=== PATIENT | male | born 1960 | race American Indian/Alaskan Native ===

== ENCOUNTER 2018-12-08 16:01 | Emergency (ER) | payer SELFPAY ==
--- NOTE | 2018-12-08 16:33 | ED PDOC ---
Arrival/HPI - General Chief Complaint: Male Genitourinary Time Seen by Provider: 12/08/18 16:04 Historian: Patient, Partner - History of Present Illness Narrative History of Present Illness (Text): 12/08/18 16:34 57-year-old male presents today with a 5-month history of urinary frequency. Patient states for the past 5 months he is been going to the bathroom frequently and at times he has to run to the bathroom and occasionally does not make it in time and starts to dribble urine out prior to unzipping his pants. Patient denies abdominal pain. No nausea vomiting diarrhea. Patient states he has occasional constipation and hard stools. He denies hematuria or back pain. Patient denies fevers or chills. Patient's states that she was recently diagnosed with a urinary tract infection and she is convinced that he has a urinary tract infection. Patient denies penile discharge or testicular pain. No other complaints. Past Medical History - Provider Review Nursing Documentation Reviewed: Yes - Travel History Have you recently traveled outside [place] w/in the past 3 mons?: No - Infectious Disease Hx of Infectious Diseases: None - Psychiatric Hx Substance Use: No - Anesthesia Hx Anesthesia: No Family/Social History - Physician Review Nursing Documentation Reviewed: Yes Family/Social History: Unknown Family HX Smoking Status: Current Some Days Smoker Hx Alcohol Use: Yes Frequency of alcohol use: Socially Hx Substance Use: No Allergies/Home Meds Allergies/Adverse Reactions: Allergies seasonal Allergy (Uncoded 12/08/18 16:13) CONGESTION Home Medications: Home Meds Medication Instructions Recorded Confirmed No Known Home Med 12/08/18 12/08/18 Review of Systems - Review of Systems Constitutional: absent: Fatigue, Fevers Respiratory: absent: SOB, Cough Cardiovascular: absent: Chest Pain, Palpitations Gastrointestinal: Constipation (at times). absent: Abdominal Pain, Diarrhea, Nausea, Vomiting Genitourinary Male: Frequency. absent: Dysuria, Hematuria, Urinary Output Changes Musculoskeletal: absent: Arthralgias, Back Pain, Neck Pain Skin: absent: Rash, Pruritis Neurological: absent: Headache, Dizziness Psychiatric: absent: Anxiety, Depression Physical Exam Vital Signs Reviewed: Yes Vital Signs Temp Pulse Resp BP Pulse Ox 12/08/18 16:07 98.5 F 67 18 157/84 H 99 Temperature: Afebrile Blood Pressure: Hypertensive Pulse: Regular Respiratory Rate: Normal Appearance: Positive for: Well-Appearing, Non-Toxic, Comfortable Pain Distress: None Mental Status: Positive for: Alert and Oriented X 3 - Systems Exam Head: Present: Atraumatic Mouth: Present: Moist Mucous Membranes Neck: Present: Normal Range of Motion Respiratory/Chest: Present: Clear to Auscultation, Good Air Exchange. No: Respiratory Distress, Accessory Muscle Use Cardiovascular: Present: Regular Rate and Rhythm, Normal S1, S2. No: Murmurs Abdomen: Present: Hernias (+ reducible right inguinal hernia without tenderness, erythema. ). No: Tenderness, Distention, Peritoneal Signs, Rebound, Guarding Back: Present: Normal Inspection. No: CVA Tenderness, Midline Tenderness, Paraspinal Tenderness Upper Extremity: Present: Normal ROM Lower Extremity: Present: Normal ROM Neurological: Present: GCS=15 Skin: Present: Warm, Dry, Normal Color. No: Rashes Psychiatric: Present: Alert, Oriented x 3 Medical Decision Making ED Course and Treatment: 12/08/18 16:50 57yr old male with 5 month history of urinary frequency. abd is soft non tender, non distended with reducible right inguinal hernia. after urination; post void residual is 56cc measured by bladder scanner. UA: wnl urine culture pending gc/chlamydia pending. pts is concerned that the patient is cheating on her and she thinks he has an std because she keeps getting. pt agrees to std treatment. 12/08/18 16:58 pt is non toxic well appearing; no distress. stable vitals. all results d iscussed in depth with patient; pt advised to f/u with Pmd and urologist. pt advised immediate return if symptoms worsen,persist or if new symptoms develop. I discussed hernias in depth with the patient and his partner. I have advised follow-up with a surgeon for evaluation of his inguinal hernia. I have discussed signs and symptoms of strangulated/incarcerated hernias and the need for immediate return if the patient starts to develop any pain or becomes no longer able to reduce his hernia. Patient verbalizes understanding of discharge instructions and need for immediate followup. All aspects of this case were discussed the attending of record. Impression: Urinary frequency, hernia follow up with the primary care physician within the next 2 days. follow up with the urologist within the next 2 days. follow up with the surgeon within the next 2 days regarding hernia return immediately if symptoms worsen,persist or if new symptoms develop. Disposition/Present on Arrival - Present on Arrival Any Indicators Present on Arrival: No History of DVT/PE: No History of Uncontrolled Diabetes: No Urinary Catheter: No History of Decub. Ulcer: No History Surgical Site Infection Following: None - Disposition Have Diagnosis and Disposition been Completed?: Yes Diagnosis: Urinary frequency, Hernia Disposition: HOME/ ROUTINE Disposition Time: 17:30 Patient Plan: Discharge Condition: GOOD Discharge Instructions (ExitCare): Groin Hernia (DC), Screening for Sexually Transmitted Infections Additional Instructions: follow up with the primary care physician within the next 2 days. follow up with the urologist within the next 2 days. follow up with the surgeon within the next 2 days regarding hernia return immediately if symptoms worsen,persist or if new symptoms develop. Referrals: FAMILY PROVIDER,NO [Primary Care Provider] - Follow up with primary Gideon Rdz MD [Staff Provider] - Follow up with primary Avelina Rdz MD [Staff Provider] - Follow up with primary Shane Olson MD [Staff Provider] - Follow up with primary Scott Person MD [Staff Provider] - Follow up with primary Yolanda Grimes MD [Medical Doctor] - Follow up with primary [facility] [Outside] - Follow up with primary [facility] at [facility] [place] [Outside] - Follow up with primary Forms: [employer] (Emirati)
[2018-12-08 16:53] LABS: URINE BILIRUBIN NEGATIVE (NEGATIVE); URINE BLOOD NEGATIVE (NEGATIVE); URINE GLUCOSE (UA) NEGATIVE (NEGATIVE); URINE LEUKOCYTE ESTERASE NEGATIVE Leu/uL (NEGATIVE); URINE PROTEIN NEGATIVE mg/dL (<30 mg/dL); URINE UROBILINOGEN 0.2 E.U./dL (<1 E.U./dL)
[2018-12-08 16:58] LABS: URINE COLOR LIGHT YELLOW (YELLOW)
[2018-12-08 16:59] LABS: URINE APPEARANCE CLEAR (CLEAR)
[2018-12-08] MEDS ORDERED: cefTRIAXone (Rocephin) 250 mg Inj IM STA (17:35)
[2018-12-08 18:29] VITALS: BP 148/79; PULSE 50; RESP 16; TEMP 98.7; O2SAT 97
== END 2018-12-08 18:27 | disposition home or self-care (01) ==
LOC: ED 16:01
DX: R35.0 Frequency of micturition (principal); K40.90 Unilateral inguinal hernia, without obstruction or gangrene, not specified as recurrent
CPT/HCPCS: 81003; 82948; 87086; 87491; 87591; 96372; 99283; J0696

== ENCOUNTER 2019-02-10 14:19 | Emergency (ER) | payer SELFPAY ==
[2019-02-10 14:29] VITALS: TEMP 98.5
[2019-02-10] MEDS ORDERED: DiphenhydrAMINE 50 mg/ml Inj IVP STA (14:43)
[2019-02-10] MEDS ORDERED: Sodium Chloride 0.9% 1,000 ML IV STA (14:43)
[2019-02-10 15:04] LABS: BASO # 0.02 K/mm3 (0.0-2.0); BASO % 0.2 % (0.0-3.0); EOS % 0.5 % (1.5-5.0); HEMOGLOBIN 14.5 g/dL (14.0-18.0); LYMPH # 1.9 (1.2-3.4); LYMPH % 22.1 % (22.0-35.0); MEAN CELL VOLUME 91.7 fl (80.0-105.0); MEAN CORPUSCULAR HEMOGLOBIN 30.8 pg (25.0-35.0); MEAN CORPUSCULAR HGB CONC 33.6 g/dl (31.0-37.0); MEAN PLATELET VOLUME 9.5 fl (7.0-11.0); MONO # 0.7 (0.1-0.6); MONO % 7.6 % (1.0-6.0); RBC 4.71 10^6/uL (3.5-6.1); WHITE BLOOD COUNT 8.6 10^3/uL (4.5-11.0)
[2019-02-10 15:10] LABS: INR 1.23; PARTIAL THROMBOPLASTIN TIME 36.1 Seconds (26.9-38.3); PROTHROMBIN TIME 13.6 SECONDS (9.4-12.5)
[2019-02-10 15:14] LABS: ALT/SGPT 21 U/L (7-56); AST/SGOT 23 U/L (17-59); BLOOD UREA NITROGEN 11 mg/dL (7-21); CALCIUM 9.8 mg/dL (8.4-10.5); GFR NON-AFRICAN AMERICAN > 60
--- NOTE | 2019-02-10 15:14 | CT ---
Date of service: 02/10/2019 PROCEDURE: CT HEAD WITHOUT CONTRAST. HISTORY: headache COMPARISON: None available. TECHNIQUE: Axial computed tomography images were obtained through the head/brain without intravenous contrast. Radiation dose: Total exam DLP = 861.83 mGy-cm. This CT exam was performed using one or more of the following dose reduction techniques: Automated exposure control, adjustment of the mA and/or kV according to patient size, and/or use of iterative reconstruction technique. FINDINGS: HEMORRHAGE: No intracranial hemorrhage. BRAIN: No mass effect or edema. No atrophy or chronic microvascular ischemic changes. VENTRICLES: Unremarkable. No hydrocephalus. CALVARIUM: Unremarkable. PARANASAL SINUSES: Unremarkable as visualized. No significant inflammatory changes. MASTOID AIR CELLS: Unremarkable as visualized. No inflammatory changes. OTHER FINDINGS: None. IMPRESSION: No acute intracranial pathology.
--- NOTE | 2019-02-10 15:16 | ED PDOC ---
Arrival/HPI - General Chief Complaint: Headache Time Seen by Provider: 02/10/19 14:30 Historian: Patient - History of Present Illness Narrative History of Present Illness (Text): 58 y/o male with no significant PMH presents to the ED c/o headache x 5 days. Described as dull and located to occiput. Has been taking tylenol and zyrtec without relief. Associated sinus congestion. Denies fever, chills, dizziness, vision changes, neck stiffness, extremity numbness/weakness/paresthesia, chest pain, SOB, nausea, vomiting, abdominal pain, ear pain, eye pain, sore throat, photophobia, or any other associated symptoms. Past Medical History - Provider Review Nursing Documentation Reviewed: Yes - Infectious Disease Hx of Infectious Diseases: None - Psychiatric Hx Substance Use: No - Anesthesia Hx Anesthesia: No Family/Social History - Physician Review Nursing Documentation Reviewed: Yes Family/Social History: No Known Family HX Smoking Status: Heavy Smoker > 10 Cigarettes Daily Hx Alcohol Use: Yes Frequency of alcohol use: Few days per week Hx Substance Use: No Allergies/Home Meds Allergies/Adverse Reactions: Allergies seasonal Allergy (Uncoded 12/08/18 16:13) CONGESTION Review of Systems - Review of Systems Constitutional: Normal. absent: Fevers Eyes: Normal. absent: Vision Changes ENT: Sinus Congestion. absent: Hearing Changes, Sore Throat Respiratory: Normal. absent: SOB, Cough Cardiovascular: Normal. absent: Chest Pain Gastrointestinal: Normal. absent: Abdominal Pain, Nausea, Vomiting Genitourinary Male: Normal. absent: Dysuria, Frequency Musculoskeletal: Normal. absent: Back Pain, Neck Pain Skin: Normal. absent: Rash Neurological: Headache Physical Exam Vital Signs Reviewed: Yes Vital Signs Temp Pulse Resp BP Pulse Ox 02/10/19 14:27 98.5 F 83 18 129/83 100 Temperature: Afebrile Blood Pressure: Normal Pulse: Regular Respiratory Rate: Normal Appearance: Positive for: Well-Appearing, Non-Toxic, Comfortable Pain Distress: None Mental Status: Positive for: Alert and Oriented X 3 - Systems Exam Head: Present: Atraumatic, Normocephalic Pupils: Present: PERRL Extroacular Muscles: Present: EOMI Conjunctiva: Present: Normal Ears: Present: Normal, NORMAL TM, Normal Canal Mouth: Present: Moist Mucous Membranes Pharnyx: Present: Normal. No: ERYTHEMA, EXUDATE, TONSILS ENLARGED Neck: Present: Normal Range of Motion, Paraspinal Tenderness (mild bilaterally). No: Meningeal Signs, MIDLINE TENDERNESS Respiratory/Chest: Present: Clear to Auscultation, Good Air Exchange. No: Respiratory Distress, Accessory Muscle Use Cardiovascular: Present: Regular Rate and Rhythm, Normal S1, S2, Peripheal Pulses Present Abdomen: No: Tenderness Back: Present: Normal Inspection Upper Extremity: Present: Normal Inspection, Normal ROM, NORMAL PULSES, Neurovascularly Intact, Capillary Refill < 2s. No: Cyanosis, Edema, Temperature Abnormalties Lower Extremity: Present: Normal Inspection, NORMAL PULSES, Normal ROM, Neurovascularly Intact, Capillary Refill < 2 s. No: Edema, Temperature Abnormalties Neurological: Present: GCS=15, CN II-XII Intact, Speech Normal, Motor Func Grossly Intact, Normal Sensory Function, Normal Cerebellar Funct, Gait Normal Skin: Present: Warm, Dry, Normal Color. No: Rashes Psychiatric: Present: Alert, Oriented x 3, Normal Insight, Normal Concentration, Normal Affect, Normal Mood Medical Decision Making ED Course and Treatment: Initial Plan: * Labs * UA * Head CT * Tylenol, Toradol, Reglan, Benadryl, IVF Bloodwork reviewed, unremarkable UA reviewed, unremarkable Head CT unremarkable Patient reports resolution of headache with pain medication Advised PMD and neurology followup. Diagnostic testing results and plan of care discussed with patient. Strict instructions given regarding prescription use, importance of followup, and sig ns/symptoms to return to ER including worsening headache, visual changes, dizziness, fever, or any other new/worsening symptoms. Pt verbalized understanding of discussion. Patient is A&Ox3, ambulating with steady gait, with vital signs stable for discharge. - Lab Interpretations Lab Results: PT 13.6 SECONDS (9.4-12.5) H 02/10/19 14:55 INR 1.23 02/10/19 14:55 APTT 36.1 Seconds (26.9-38.3) 02/10/19 14:55 Total Bilirubin 0.4 mg/dL (0.2-1.3) 02/10/19 14:55 AST 23 U/L (17-59) 02/10/19 14:55 ALT 21 U/L (7-56) 02/10/19 14:55 Alkaline Phosphatase 66 U/L (38-126) 02/10/19 14:55 Total Protein 8.1 g/dL (5.8-8.3) 02/10/19 14:55 Albumin 4.0 g/dL (3.0-4.8) 02/10/19 14:55 Globulin 4.0 gm/dL 02/10/19 14:55 Albumin/Globulin Ratio 1.0 (1.1-1.8) L 02/10/19 14:55 - RAD Interpretation Narrative RAD Interpretations (Text): 02/10/19 15:[address]: FINDINGS: HEMORRHAGE: No intracranial hemorrhage. BRAIN: No mass effect or edema. No atrophy or chronic microvascular ischemic changes. VENTRICLES: Unremarkable. No hydrocephalus. CALVARIUM: Unremarkable. PARANASAL SINUSES: Unremarkable as visualized. No significant inflammatory changes. MASTOID AIR CELLS: Unremarkable as visualized. No inflammatory changes. OTHER FINDINGS: None. IMPRESSION: No acute intracranial pathology. Radiology Orders: 02/10/19 14:42 HEAD W/O CONTRAST [CT] Stat [employer] Mate: Radiologist - Medication Orders Current Medication Orders: Sodium Chloride (Sodium Chloride 0.9%) 1,000 mls @ 999 mls/hr IV .Q1H1M STA Stop: 02/10/19 15:43 Discontinued Medications Acetaminophen (Tylenol 325mg Tab) 650 mg PO STAT STA Stop: 02/10/19 14:44 Diphenhydramine HCl (Benadryl) 25 mg IVP STAT STA Stop: 02/10/19 14:44 Metoclopramide HCl (Reglan) 10 mg IVP STAT STA Stop: 02/10/19 14:44 Disposition/Present on Arrival - Present on Arrival Any Indicators Present on Arrival: No History of DVT/PE: No History of Uncontrolled Diabetes: No Urinary Catheter: No History of Decub. Ulcer: No History Surgical Site Infection Following: None - Disposition Have Diagnosis and Disposition been Completed?: Yes Diagnosis: Headache Disposition: HOME/ ROUTINE Disposition Time: 15:21 Patient Plan: Discharge Condition: IMPROVED Discharge Instructions (ExitCare): Tension Headache, Headache, Adult Additional Instructions: Ibuprofen every 8 hours as needed for pain, take with food Tylenol every 4 hours as needed for pain Followup with primary doctor within 2 days Followup with neurologist for persistent headache Return to ER with any new/worsening symptoms Prescriptions: Ibuprofen [Motrin Tab] 600 mg PO Q8 PRN #30 tab PRN Reason: Pain, Moderate (4-7) Referrals: [facility] [place] - Follow up with primary Edgar Husain MD [Staff Provider] - Follow up with primary Yolanda Grimes MD [Medical Doctor] - Follow up with primary Forms: [employer] (Faroese), WORK NOTE
[2019-02-10 16:21] LABS: URINE BILIRUBIN NEGATIVE (NEGATIVE); URINE BLOOD NEGATIVE (NEGATIVE); URINE GLUCOSE (UA) NEGATIVE (NEGATIVE); URINE LEUKOCYTE ESTERASE NEGATIVE Leu/uL (NEGATIVE); URINE PROTEIN NEGATIVE mg/dL (<30 mg/dL); URINE UROBILINOGEN 0.2 E.U./dL (<1 E.U./dL)
[2019-02-10 16:25] LABS: URINE APPEARANCE CLEAR (CLEAR); URINE COLOR YELLOW (YELLOW)
[2019-02-10 16:53] VITALS: BP 127/77; PULSE 54; RESP 16; O2SAT 97
== END 2019-02-10 16:51 | disposition home or self-care (01) ==
LOC: ED 14:19
DX: R51 Headache (principal)
CPT/HCPCS: 70450; 80053; 81003; 85025; 85610; 85730; 96374; 96375; 99285; J1200; J1885; J2765; J7030